=== PATIENT | female | born 1990 | race Caucasian/White ===

== ENCOUNTER 2016-07-04 18:55 | Emergency (ER) | payer OTHER | END 2016-07-04 20:54 | disposition home or self-care (01) | LOC: FER 18:55 | DX: R42 Dizziness and giddiness (principal); M54.2 Cervicalgia; F17.210 Nicotine dependence, cigarettes, uncomplicated; Z88.0 Allergy status to penicillin | CPT/HCPCS: 93005 ==

== ENCOUNTER 2016-07-05 20:33 | Emergency (ER) | payer OTHER | END 2016-07-05 23:20 | disposition left against medical advice (07) | LOC: FER 20:33 | DX: M54.2 Cervicalgia (principal); R51 Headache; Z53.8 Procedure and treatment not carried out for other reasons ==

== ENCOUNTER 2016-07-06 11:19 | Emergency (ER) | payer OTHER | END 2016-07-06 13:00 | disposition home or self-care (01) | LOC: FER 11:19 | DX: M54.12 Radiculopathy, cervical region (principal); F17.210 Nicotine dependence, cigarettes, uncomplicated; R42 Dizziness and giddiness; Z88.0 Allergy status to penicillin | CPT/HCPCS: 72125; J1885 ==